=== PATIENT | female | born 1935 | race Caucasian/White ===

== ENCOUNTER 2016-11-04 12:36 | Emergency (ER) | payer MEDICARE, BC ==
[~2016-11-04 12:36] MED LIST: DEXILANT60 MG; DEXILANT60 MG PO; ENTOCORT EC DPS3 MG PO; LOMOTIL DPS1 PO; NEURONTIN100 MG PO; QUESTRAN DPS4 GM PO
--- NOTE | 2016-11-10 23:42 | ER ---
ADMIT: 11/04/2016 RM/LOC: ER [facility] MR#: [id number] [id number] [place], [place] [id number] INGRID VALENZUELA [address] [place], [place] [id number] Emergency Room Report SEX: F AGE: 81 : 1935 DATE: 11/04/2016 BRIEF ADDENDUM: Please see my T-sheet for complete review of systems, past medical history, and physical exam. CHIEF COMPLAINT: Injury to right shoulder, wrist, and hand. HISTORY OF PRESENT ILLNESS: Pleasant 81-year-old female, who presents after falling at [email or web address] prior to arrival. States she was carrying a glass salad plate when she caught her left foot, tripped, and fell on an outstretched right hand onto a broken plate. EMS was activated, she arrives by ambulance with multiple lacerations on her right hand. She complains of some vague shoulder pain, however, states this is 1/10 and she has good range of motion. Denies any loss of consciousness. No back pain. No chest pain, shortness of breath, cough, nausea, vomiting, or headache. No numbness or tingling distally. PAST MEDICAL HISTORY: CHF and hypertension. She is right handed. COURSE IN THE EMERGENCY ROOM: The patient was examined. She is afebrile and nontoxic. She is in no acute distress. She does have a 0.5 cm laceration on the thenar eminence of the right hand as well as a 4 cm laceration on the right wrist. She has good gambling supervisor strength compared bilaterally. Sensation intact in the hand. She has good capillary refill compared bilaterally. Radial pulse is palpable. Shoulder exam has some anterior tenderness to palpation, however, she has a full range of motion and good strength. Skin is warm and dry. Head is normocephalic and atraumatic. Neck, no tenderness. Full range of motion. PROCEDURE NOTE: Laceration repair. This is a 4 cm irregular laceration on the right wrist. It is somewhat flap like in nature. Neurovascularly intact prior to anesthesia. She was anesthetized using 5 mL of 2% lidocaine. The area was prepped with Betadine and UltraDEX, irrigated with saline. The wound was explored to the base, no foreign bodies were identified. It was repaired using seven 4-0 Prolene sutures. Wound edges were well everted. The wound was dressed. 0.5 cm laceration right hand, linear in nature. Anesthetized with 1 mL lidocaine. After anesthesia was achieved, it was thoroughly cleaned with Betadine, UltraDEX, irrigated with saline. The wound was explored to the base in a bloodless field. No foreign bodies identified. Repaired with one 4-0 Prolene sutures. The wound edges were well everted. Dressed with a sterile ADMIT: 11/04/2016 RM/LOC: [facility] MR#: [id number] [address] [place] [id number] INGRID VALENZUELA [address] [place] [address] Emergency Room Report SEX: F AGE: 81 : 1935 dressing. IMPRESSION: 1. Laceration to right hand, right wrist. 2. Fall. DISPOSITION: The patient was discharged to follow up with Dr. Cooper in 7 days to have the sutures removed. Tylenol as needed for pain. Apply ice, rest, compress, and elevate. Keep clean and dry for 24 hours. Wash it today with warm soapy water. Monitor for signs of infection. Follow up sooner if needed. Questions sought and answered to the best of my ability and patient's satisfaction. Discharged in stable condition. RIKI Diamond / Michael Gonzalez MD / agueda MILLS: 11/04/2016 13:47:13 JOB #: [id number] CC: Michael Gonzalez MD, Attending Physician Tremayne Cooper MD, Family Physician
== END 2016-11-04 13:58 | disposition home or self-care (01) ==
LOC: ER 12:36
PROC: 0HQDXZZ Repair Right Lower Arm Skin, External Approach (ICD-10-PCS; principal; 2016-11-04)
PROC: 0HQFXZZ Repair Right Hand Skin, External Approach (ICD-10-PCS; principal; 2016-11-04)
DX: S61.411A Laceration without foreign body of right hand, initial encounter (principal); S61.511A Laceration without foreign body of right wrist, initial encounter; I11.0 Hypertensive heart disease with heart failure; I50.9 Heart failure, unspecified; W01.0XXA Fall on same level from slipping, tripping and stumbling without subsequent striking against object, initial encounter; Y92.89 Other specified places as the place of occurrence of the external cause

== ENCOUNTER → 2017-02-22 | Outpatient (CLI) | payer MEDICARE, BC | END | disposition home or self-care (01) | DX: Z01.818 Encounter for other preprocedural examination (principal); I10 Essential (primary) hypertension; R94.31 Abnormal electrocardiogram [ECG] [EKG] ==